=== PATIENT | male | born 1975 | race Caucasian/White ===

== ENCOUNTER 2023-02-16 09:35 | Inpatient (IN) | payer MEDICAID ==
[~2023-02-16] VITALS: Ht 172.7 cm; Wt 101.2 kg
[2023-02-16] MEDS ORDERED: IOHEXOL-350 100 ML BOTTLE ONE (12:02)
[2023-02-16] MEDS ORDERED: ASPIRIN 81MG TABLET PO ONE (12:15)
[2023-02-16 12:21] LABS: BASOPHILS % 1.4 % (0.0-2.0); EOSINOPHILS % 6.8 % (0.0-5.0); HEMATOCRIT. 38.9 % (42.0-52.0); HEMOGLOBIN. 12.8 g/dL (14.0-18.0); LYMPHOCYTES % 16.4 % (20.0-50.0); MEAN CORPUSCULAR HEMOGLOBIN 29.1 pg (28.0-32.0); MEAN CORPUSCULAR VOLUME 88.6 fL (80.0-94.0); MEAN PLATELET VOLUME 9.8 fl (7.4-10.4); MONOCYTES % 6.1 % (2.0-8.0); NEUTROPHILS % 69.3 % (40.0-76.0); PLATELET 268 x1000/uL (130-400); RED BLOOD CELL COUNT 4.39 mill/uL (4.7-6.1); RED CELL DISTRIBUTION WIDTH 14.3 % (11.6-14.6)
[2023-02-16 12:26] LABS: CHLORIDE 106 mEq/L (98-107); PROTHROMBIN TIME 10.6 sec (9.6-11.0)
[2023-02-16 12:35] LABS: ETHANOL BLOOD < 10 mg/dL
[2023-02-16] MEDS ORDERED: SODIUM CHLORIDE 0.9% 1,000 ML IV ONE (14:30)
[2023-02-16 15:52] VITALS: BP 114/68
[2023-02-16] MEDS ORDERED: FURO20TA4 MT (16:19)
[2023-02-16] MEDS ORDERED: ATOR-2 MT (16:19)
[2023-02-16] MEDS ORDERED: EZET10TA13 MT (16:19)
[2023-02-16] MEDS ORDERED: OMEG100036 MT (16:19)
[2023-02-16] MEDS ORDERED: EMPA25TA MT (16:19)
[2023-02-16] MEDS ORDERED: CARV25TA47 MT (16:19)
[2023-02-16] MEDS ORDERED: SACU1TAB MT (16:19)
[2023-02-16] MEDS ORDERED: CLOP-31 MT (16:19)
[2023-02-16] MEDS ORDERED: METF-414 MT (16:19)
[2023-02-16] MEDS ORDERED: ASPI-1497 MT (16:19)
[2023-02-16 16:30] VITALS: BP 114/68
[2023-02-16] MEDS ORDERED: CLONIDINE 0.1MG TABLET PO PRN (18:00)
[2023-02-16] MEDS ORDERED: ACETAMINOPHEN 325MG TABLET PO PRN ×2 (18:00)
[2023-02-16] MEDS ORDERED: MAGNESIUM/ALUMINUM HYDROXIDE/SIMETHICONE 30ML UDC PO PRN (18:00)
[2023-02-16] MEDS ORDERED: DEXTROSE 50% WATER 50ML SYRINGE IV PRN (18:00)
[2023-02-16] MEDS ORDERED: ONDANSETRON HCL 4MG/2ML INJ IV PRN (18:00)
[2023-02-16] MEDS: METFORMIN HCL 500MG TABLET PO SCH (18:10)
[2023-02-16 19:47] VITALS: BP 118/72
[2023-02-16] MEDS: FAMOTIDINE 20MG TABLET PO SCH (20:37)
[2023-02-16] MEDS: CARVEDILOL 12.5MG TABLET PO SCH (20:37)
[2023-02-16] MEDS: INSULIN LISPRO 100 UNITS/ML SUBCUT SCH (20:38)
[2023-02-16] MEDS: BLOOD SUGAR DIAGNOSTIC STRIP TEST SCH (20:38)
[2023-02-16] MEDS: SODIUM CHLORIDE 0.9% INJ 3ML FLUSH IVF SCH (20:39)
[2023-02-16] MEDS ORDERED: ATORVASTATIN CALCIUM 40MG TABLET PO SCH (21:00)
[2023-02-17] VITALS: BP 140/77
[2023-02-17 00:01] VITALS: BP 140/77
[2023-02-17 04:00] VITALS: BP 138/68
[2023-02-17] MEDS: SODIUM CHLORIDE 0.9% INJ 3ML FLUSH IVF SCH ×2 (05:44→12:40)
[2023-02-17] MEDS: BLOOD SUGAR DIAGNOSTIC STRIP TEST SCH ×2 (05:46→12:34)
[2023-02-17] MEDS: INSULIN LISPRO 100 UNITS/ML SUBCUT SCH ×2 (05:50→12:39)
[2023-02-17 08:00] VITALS: BP 104/69
[2023-02-17] MEDS ORDERED: EZETIMIBE 10MG TABLET PO SCH (09:00)
[2023-02-17] MEDS ORDERED: CLOPIDOGREL 75MG TABLET PO SCH (09:00)
[2023-02-17] MEDS ORDERED: FISH OIL/OMEGA-3 FATTY ACIDS 1000MG CAPSULE PO SCH (09:00)
[2023-02-17] MEDS: CARVEDILOL 12.5MG TABLET PO SCH (09:00)
[2023-02-17] MEDS ORDERED: FUROSEMIDE 20MG TABLET PO SCH (09:00)
[2023-02-17] MEDS ORDERED: ASPIRIN 81MG EC TABLET PO SCH (09:00)
[2023-02-17] MEDS: FAMOTIDINE 20MG TABLET PO SCH (10:28)
[2023-02-17] MEDS: METFORMIN HCL 500MG TABLET PO SCH (10:28)
[2023-02-17 12:00] VITALS: BP 116/73
[2023-02-17 14:24] VITALS: BP 116/73
== END 2023-02-17 15:15 | disposition home or self-care (01) | DRG 52 ==
LOC: ER 10:40 → 7WST 14:05 → EDBEDREQTM 14:07 → EDBEDREQSVC 14:07 → EDBEDREQ 14:07 → ENRESERV 14:18
PROVIDERS: ADMIT Internal Medicine; ATTEND Internal Medicine
DX: G93.41 Metabolic encephalopathy (principal); G45.9 Transient cerebral ischemic attack, unspecified; E11.9 Type 2 diabetes mellitus without complications; H60.92 Unspecified otitis externa, left ear; E78.00 Pure hypercholesterolemia, unspecified; I10 Essential (primary) hypertension; I25.10 Atherosclerotic heart disease of native coronary artery without angina pectoris; Z88.0 Allergy status to penicillin; Z95.5 Presence of coronary angioplasty implant and graft
CPT/HCPCS: 36415; 70496; 70498; 70551; 71045; 80053; 80320; 82962; 83036; 84484; 85025; 93005; 99291; J1815; J7030; Q9967; G0480